=== PATIENT | female | born 1955 | race Caucasian/White ===

== ENCOUNTER → 2024-08-11 | Outpatient (CLI) | payer MEDICARE | END | disposition home or self-care (01) | LOC: BD 10:12 | PROVIDERS: ATTEND Nurse Practitioner Family | DX: Z13.820 Encounter for screening for osteoporosis (principal); M85.88 Other specified disorders of bone density and structure, other site; Z78.0 Asymptomatic menopausal state | CPT/HCPCS: 77080 ==